=== PATIENT | female | born 1965 | race Caucasian/White ===

== ENCOUNTER 2017-01-03 15:56 | Emergency (ER) | payer OTHER ==
[~2017-01-03] VITALS: Ht 162.6 cm; Wt 65.9 kg
[~2017-01-03 15:56] MED LIST: AMOXICILLIN 50500 MG PO; AMOXICILLIN/CLA1 TA1 PO; BENADRYL PO; BENADRYL25 M2 PO; CEPHALEXIN500 M1 PO; CETIRIZINE; CIPRO 250MG TA250 MG PO; CLARITIN 1010 MG/TAB PO; EPI EZ PEN1 MG/ML IM; EPI-PEN1 MG/ML MR; EPIPEN 2-PAK1 MG/ML IM; HYDROXYZINE HCL25 MG PO; MEDROL 4MG DOSPA4 MG PO; NO HOME MEDICATIONS; OMNICEF 300MG300 MG PO; ONE DAILY1 TA1 PO; PEPCID 20MG TAB20 MG PO; PREDNISONE10 MG PO; PREDNISONE20 M1 PO; PREDNISONE20 MG PO; PROVENTIL0.09 MG/A1 IH; VICODIN 5/5001 UDTAB PO; ZITHROMAX 250M250 MG PO; ZYRTEC10 MG PO
[2017-01-03 15:58] VITALS: BP 140/81; TEMP 98.4
[2017-01-03] MEDS ORDERED: ZOFRAN 4MG T4 MG/TAB PO (16:16)
[2017-01-03] MEDS ORDERED: PREDNISONE20 MG PO (16:16)
[2017-01-03 17:11] VITALS: PULSE 76
== END 2017-01-03 17:12 | disposition home or self-care (01) ==
LOC: COL.ER 15:56
DX: T78.1XXA Other adverse food reactions, not elsewhere classified, initial encounter (principal); R22.0 Localized swelling, mass and lump, head; R11.2 Nausea with vomiting, unspecified
CPT/HCPCS: J7512

== ENCOUNTER 2017-01-10 21:06 | Emergency (ER) | payer OTHER ==
[~2017-01-10] VITALS: Ht 162.6 cm; Wt 68.2 kg
[~2017-01-10 21:06] MED LIST changes: +ZOFRAN 4MG T4 MG/TAB PO
[2017-01-10 21:08] VITALS: BP 133/81; TEMP 98.6
[2017-01-10] MEDS ORDERED: BENADRYL25 M2 PO (21:13)
[2017-01-10] MEDS ORDERED: CLARITIN 1010 MG/TAB PO (21:13)
[2017-01-10] MEDS ORDERED: PREDNISONE10 MG PO (21:39)
[2017-01-10 21:55] VITALS: PULSE 78
== END 2017-01-10 21:56 | disposition home or self-care (01) ==
LOC: COL.ER 21:06
DX: T78.1XXA Other adverse food reactions, not elsewhere classified, initial encounter (principal); L50.0 Allergic urticaria
CPT/HCPCS: J1200; J7512

== ENCOUNTER 2017-03-03 15:58 | Emergency (ER) | payer OTHER ==
[~2017-03-03] VITALS: Ht 162.6 cm; Wt 65.9 kg
[2017-03-03 16:02] VITALS: TEMP 98.8
[2017-03-03] MEDS ORDERED: ZYRTEC 10MG10 MG PO (16:07)
[2017-03-03] MEDS ORDERED: PEPCID 20MG TAB20 MG PO (16:56)
[2017-03-03] MEDS ORDERED: PREDNISONE20 MG PO (16:56)
[2017-03-03] MEDS ORDERED: BENADRYL25 M2 PO (16:56)
[2017-03-03 17:05] VITALS: BP 129/86; PULSE 90
== END 2017-03-03 17:09 | disposition home or self-care (01) ==
LOC: COL.ER 15:58
DX: T78.1XXA Other adverse food reactions, not elsewhere classified, initial encounter (principal); L50.0 Allergic urticaria; F17.210 Nicotine dependence, cigarettes, uncomplicated
CPT/HCPCS: J1200; J2930; J7050

== ENCOUNTER 2017-04-13 14:24 | Emergency (ER) | payer OTHER ==
[~2017-04-13] VITALS: Ht 162.6 cm; Wt 65.9 kg
[~2017-04-13 14:24] MED LIST changes: +ZYRTEC 10MG10 MG PO
[2017-04-13 14:28] VITALS: TEMP 99.5
[2017-04-13] MEDS ORDERED: CLARITIN 1010 MG/TAB PO (15:09)
[2017-04-13] MEDS ORDERED: MEDROL 4MG DOSPA4 MG PO (15:50)
[2017-04-13] MEDS ORDERED: PREDNISONE10 MG PO (15:55)
[2017-04-13 16:16] VITALS: BP 119/80; PULSE 79
== END 2017-04-13 16:16 | disposition home or self-care (01) ==
LOC: COL.ER 14:24
DX: T78.1XXA Other adverse food reactions, not elsewhere classified, initial encounter (principal); F17.210 Nicotine dependence, cigarettes, uncomplicated; Z91.011 Allergy to milk products; Z90.89 Acquired absence of other organs; Z98.890 Other specified postprocedural states
CPT/HCPCS: J7512

== ENCOUNTER 2017-04-28 09:07 | Emergency (ER) | payer OTHER ==
[~2017-04-28] VITALS: Ht 162.6 cm; Wt 65.9 kg
[2017-04-28 09:11] VITALS: BP 152/85; PULSE 88; TEMP 98.3
[2017-04-28] MEDS ORDERED: PREDNISONE20 MG PO (10:05)
== END 2017-04-28 10:28 | disposition home or self-care (01) ==
LOC: COL.ER 09:07
DX: T78.1XXA Other adverse food reactions, not elsewhere classified, initial encounter (principal); L50.0 Allergic urticaria
CPT/HCPCS: J7512

== ENCOUNTER 2017-05-31 20:18 | Emergency (ER) | payer OTHER ==
[~2017-05-31] VITALS: Ht 162.6 cm; Wt 65.9 kg
[2017-05-31 20:20] VITALS: TEMP 98.6
[2017-05-31] MEDS ORDERED: PREDNISONE20 MG PO (20:43)
[2017-05-31] MEDS ORDERED: ADRENACLICK IM (20:43)
[2017-05-31] MEDS ORDERED: ZYRTEC 10MG10 MG PO (21:20)
[2017-05-31 21:35] VITALS: BP 117/73; PULSE 105
== END 2017-05-31 21:42 | disposition home or self-care (01) ==
LOC: COL.ER 20:18
DX: R11.10 Vomiting, unspecified (principal); R19.7 Diarrhea, unspecified; L29.9 Pruritus, unspecified; R06.02 Shortness of breath; R22.0 Localized swelling, mass and lump, head; R13.10 Dysphagia, unspecified
CPT/HCPCS: J0171; J7512

== ENCOUNTER 2017-06-09 19:53 | Emergency (ER) | payer OTHER ==
[~2017-06-09] VITALS: Ht 162.6 cm; Wt 65.9 kg
[~2017-06-09 19:53] MED LIST changes: +ADRENACLICK IM
[2017-06-09 19:56] VITALS: BP 151/96; TEMP 99.8
[2017-06-09] MEDS ORDERED: PREDNISONE20 MG PO (20:58)
[2017-06-09 21:49] VITALS: PULSE 89
== END 2017-06-09 21:51 | disposition home or self-care (01) ==
LOC: COL.ER 19:53
DX: L50.0 Allergic urticaria (principal); R13.10 Dysphagia, unspecified; T78.40XA Allergy, unspecified, initial encounter
CPT/HCPCS: J1200; J2930; J7040; J7512

== ENCOUNTER 2017-07-06 13:41 | Emergency (ER) | payer OTHER ==
[~2017-07-06] VITALS: Ht 162.6 cm; Wt 73.6 kg
[2017-07-06 13:45] VITALS: BP 136/75; TEMP 97.8
[2017-07-06] MEDS ORDERED: PREDNISONE20 MG PO (16:02)
[2017-07-06 16:13] VITALS: PULSE 100
== END 2017-07-06 16:15 | disposition home or self-care (01) ==
LOC: COL.ER 13:41
DX: T78.40XA Allergy, unspecified, initial encounter (principal); F17.210 Nicotine dependence, cigarettes, uncomplicated; Z98.51 Tubal ligation status
CPT/HCPCS: J2930

== ENCOUNTER 2017-11-29 19:52 | Emergency (ER) | payer SELFPAY ==
[~2017-11-29] VITALS: Ht 162.6 cm; Wt 65.9 kg
[2017-11-29 20:01] VITALS: TEMP 99.2
[2017-11-29] MEDS ORDERED: PREDNISONE20 MG PO (20:27)
[2017-11-29 21:57] VITALS: BP 119/83; PULSE 91
== END 2017-11-29 21:58 | disposition home or self-care (01) ==
LOC: COL.ER 19:52
DX: T78.40XA Allergy, unspecified, initial encounter (principal); Z87.892 Personal history of anaphylaxis
CPT/HCPCS: J7512

== ENCOUNTER 2017-12-19 19:11 | Emergency (ER) | payer OTHER ==
[~2017-12-19] VITALS: Ht 162.6 cm; Wt 65.9 kg
[2017-12-19 19:21] VITALS: BP 140/90; TEMP 99.3
[2017-12-19] MEDS ORDERED: PREDNISONE20 MG PO (19:55)
[2017-12-19 21:29] VITALS: PULSE 92
== END 2017-12-19 21:29 | disposition home or self-care (01) ==
LOC: COL.ER 19:11
DX: R21 Rash and other nonspecific skin eruption (principal); T78.40XA Allergy, unspecified, initial encounter; Z79.52 Long term (current) use of systemic steroids
CPT/HCPCS: J1200; J2930

== ENCOUNTER 2017-12-27 10:14 | Emergency (ER) | payer SELFPAY ==
[~2017-12-27] VITALS: Ht 162.6 cm; Wt 68.2 kg
[2017-12-27 10:18] VITALS: BP 138/65; TEMP 98.3
[2017-12-27] MEDS ORDERED: PREDNISONE20 MG PO (11:22)
[2017-12-27 11:27] VITALS: PULSE 77
== END 2017-12-27 11:31 | disposition home or self-care (01) ==
LOC: COL.ER 10:14
DX: T78.40XA Allergy, unspecified, initial encounter (principal)
CPT/HCPCS: J2930

== ENCOUNTER → 2017-12-27 | Outpatient (CLI) | payer OTHER | LOC: COL.PUL 09:28 | DX: Z02.71 Encounter for disability determination (principal); F17.200 Nicotine dependence, unspecified, uncomplicated ==

== ENCOUNTER 2018-05-09 18:53 | Emergency (ER) | payer SELFPAY ==
[~2018-05-09] VITALS: Ht 162.6 cm; Wt 72.5 kg
[2018-05-09 18:56] VITALS: TEMP 98.3
[2018-05-09] MEDS ORDERED: PREDNISONE20 MG PO (20:11)
[2018-05-09 21:10] VITALS: BP 119/72; PULSE 93
== END 2018-05-09 21:10 | disposition home or self-care (01) ==
LOC: COL.ER 18:53
DX: T78.1XXA Other adverse food reactions, not elsewhere classified, initial encounter (principal); F17.210 Nicotine dependence, cigarettes, uncomplicated
CPT/HCPCS: J1200; J2930

== ENCOUNTER 2018-05-15 19:25 | Emergency (ER) | payer SELFPAY ==
[~2018-05-15] VITALS: Ht 162.6 cm; Wt 68.2 kg
[2018-05-15 19:27] VITALS: TEMP 98.9
[2018-05-15] MEDS ORDERED: BENADRYL25 M2 PO (19:44)
[2018-05-15] MEDS ORDERED: ZITHROMAX 250M250 MG PO (21:42)
[2018-05-15] MEDS ORDERED: PREDNISONE20 MG PO (21:42)
[2018-05-15 21:50] VITALS: BP 158/91; PULSE 116
== END 2018-05-15 21:50 | disposition home or self-care (01) ==
LOC: COL.ER 19:25
DX: J04.0 Acute laryngitis (principal); J40 Bronchitis, not specified as acute or chronic; T78.40XA Allergy, unspecified, initial encounter
CPT/HCPCS: J1200; J2930; J7030

== ENCOUNTER 2018-05-31 16:35 | Emergency (ER) | payer SELFPAY ==
[~2018-05-31] VITALS: Ht 162.6 cm; Wt 68.2 kg
[2018-05-31 18:15] VITALS: BP 133/79; PULSE 89
[2018-05-31] MEDS ORDERED: MEDROL 4MG DOSPA4 MG PO (18:27)
[2018-05-31] MEDS ORDERED: PEPCID 20MG TAB20 MG PO (18:27)
== END 2018-05-31 18:34 | disposition home or self-care (01) ==
LOC: COL.ER 16:35
DX: J04.0 Acute laryngitis (principal); T78.1XXA Other adverse food reactions, not elsewhere classified, initial encounter; Z87.891 Personal history of nicotine dependence
CPT/HCPCS: J7512

== ENCOUNTER 2018-07-04 19:51 | Emergency (ER) | payer SELFPAY ==
[~2018-07-04] VITALS: Ht 162.6 cm; Wt 70.5 kg
[2018-07-04 19:55] VITALS: TEMP 98
[2018-07-04] MEDS ORDERED: PREDNISONE20 MG PO ×2 (20:13→21:31)
[2018-07-04 21:41] VITALS: BP 121/78; PULSE 99
== END 2018-07-04 21:41 | disposition home or self-care (01) ==
LOC: COL.ER 19:51
DX: R21 Rash and other nonspecific skin eruption (principal); T78.1XXA Other adverse food reactions, not elsewhere classified, initial encounter
CPT/HCPCS: J2930

== ENCOUNTER 2018-07-30 10:09 | Emergency (ER) | payer SELFPAY ==
[~2018-07-30] VITALS: Ht 162.6 cm; Wt 70.5 kg
[2018-07-30 10:17] VITALS: BP 136/71; TEMP 98.4
[2018-07-30] MEDS ORDERED: PROAIR HFA0.09 MG/AC IH (11:41)
[2018-07-30] MEDS ORDERED: PEPCID 20MG TAB20 MG PO (11:41)
[2018-07-30] MEDS ORDERED: PREDNISONE20 MG PO (11:41)
[2018-07-30 11:57] VITALS: PULSE 103
== END 2018-07-30 11:59 | disposition home or self-care (01) ==
LOC: COL.ER 10:09
DX: T78.1XXA Other adverse food reactions, not elsewhere classified, initial encounter (principal); M79.89 Other specified soft tissue disorders; Z98.51 Tubal ligation status; Z98.890 Other specified postprocedural states; F17.210 Nicotine dependence, cigarettes, uncomplicated
CPT/HCPCS: J7512

== ENCOUNTER 2018-08-15 21:03 | Emergency (ER) | payer SELFPAY ==
[~2018-08-15] VITALS: Ht 162.6 cm; Wt 70.5 kg
[~2018-08-15 21:03] MED LIST changes: +PROAIR HFA0.09 MG/AC IH
[2018-08-15 21:15] VITALS: BP 143/80; TEMP 98.1
[2018-08-15] MEDS ORDERED: PREDNISONE20 MG PO (22:50)
[2018-08-15 23:05] VITALS: PULSE 88
== END 2018-08-15 23:05 | disposition home or self-care (01) ==
LOC: COL.ER 21:03
DX: L50.0 Allergic urticaria (principal); Z87.891 Personal history of nicotine dependence
CPT/HCPCS: J2930

== ENCOUNTER 2018-09-03 13:57 | Emergency (ER) | payer SELFPAY ==
[~2018-09-03] VITALS: Ht 162.6 cm; Wt 70.5 kg
[2018-09-03 14:17] VITALS: BP 139/100; TEMP 98.5
[2018-09-03] MEDS ORDERED: PREDNISONE20 MG PO (15:22)
[2018-09-03 15:40] VITALS: PULSE 96
== END 2018-09-03 15:40 | disposition home or self-care (01) ==
LOC: COL.ER 13:57
DX: T78.1XXA Other adverse food reactions, not elsewhere classified, initial encounter (principal); F17.210 Nicotine dependence, cigarettes, uncomplicated
CPT/HCPCS: J7512

== ENCOUNTER 2018-10-29 19:38 | Emergency (ER) | payer SELFPAY ==
[~2018-10-29] VITALS: Ht 162.6 cm; Wt 70.5 kg
[2018-10-29 19:42] VITALS: BP 132/66; TEMP 98.2
[2018-10-29] MEDS ORDERED: PREDNISONE20 MG PO (21:01)
[2018-10-29 21:25] VITALS: PULSE 79
== END 2018-10-29 21:25 | disposition home or self-care (01) ==
LOC: COL.ER 19:38
DX: T78.40XA Allergy, unspecified, initial encounter (principal); J02.9 Acute pharyngitis, unspecified
CPT/HCPCS: J2930

== ENCOUNTER 2018-11-12 09:07 | Emergency (ER) | payer SELFPAY ==
[~2018-11-12] VITALS: Ht 162.6 cm; Wt 68.6 kg
[2018-11-12 09:12] VITALS: TEMP 99.1
[2018-11-12] MEDS ORDERED: AMOXICILLIN 50500 MG PO (09:40)
[2018-11-12 10:15] VITALS: BP 126/73; PULSE 85
== END 2018-11-12 10:16 | disposition home or self-care (01) ==
LOC: COL.ER 09:07
DX: J02.0 Streptococcal pharyngitis (principal)
CPT/HCPCS: J8540

== ENCOUNTER 2018-11-21 18:49 | Emergency (ER) | payer SELFPAY ==
[~2018-11-21] VITALS: Ht 162.6 cm; Wt 70.5 kg
[2018-11-21 18:52] VITALS: TEMP 98.5
[2018-11-21] MEDS ORDERED: PREDNISONE20 MG PO ×2 (19:08→20:02)
[2018-11-21 20:08] VITALS: BP 113/76; PULSE 82
== END 2018-11-21 20:08 | disposition home or self-care (01) ==
LOC: COL.ER 18:49
DX: T78.1XXA Other adverse food reactions, not elsewhere classified, initial encounter (principal)
CPT/HCPCS: J7512

== ENCOUNTER 2018-12-04 20:01 | Emergency (ER) | payer SELFPAY ==
[~2018-12-04] VITALS: Ht 162.6 cm; Wt 70.5 kg
[2018-12-04 20:04] VITALS: BP 171/72; TEMP 99.1
[2018-12-04] MEDS ORDERED: PREDNISONE20 MG PO (20:52)
[2018-12-04 20:55] VITALS: PULSE 94
== END 2018-12-04 20:55 | disposition home or self-care (01) ==
LOC: COL.ER 20:01
DX: T78.1XXA Other adverse food reactions, not elsewhere classified, initial encounter (principal)
CPT/HCPCS: J1100

== ENCOUNTER 2018-12-28 19:28 | Emergency (ER) | payer SELFPAY ==
[~2018-12-28] VITALS: Ht 162.6 cm; Wt 70.5 kg
[2018-12-28 19:30] VITALS: BP 139/89; TEMP 97.8
[2018-12-28 20:00] VITALS: PULSE 89
== END 2018-12-28 20:02 | disposition home or self-care (01) ==
LOC: COL.ER 19:28
DX: T78.1XXA Other adverse food reactions, not elsewhere classified, initial encounter (principal); R21 Rash and other nonspecific skin eruption; Z87.891 Personal history of nicotine dependence
CPT/HCPCS: J8540

== ENCOUNTER 2018-12-30 16:44 | Emergency (ER) | payer SELFPAY ==
[~2018-12-30] VITALS: Ht 162.6 cm; Wt 74.1 kg
[2018-12-30 16:48] VITALS: TEMP 97.9
[2018-12-30] MEDS ORDERED: PREDNISONE20 MG PO (17:00)
[2018-12-30 17:37] VITALS: BP 125/81; PULSE 87
== END 2018-12-30 17:35 | disposition home or self-care (01) ==
LOC: COL.ER 16:44
DX: T78.1XXA Other adverse food reactions, not elsewhere classified, initial encounter (principal)
CPT/HCPCS: J7512

== ENCOUNTER 2019-01-15 19:38 | Emergency (ER) | payer SELFPAY ==
[~2019-01-15] VITALS: Ht 162.6 cm; Wt 70.5 kg
[2019-01-15 19:44] VITALS: TEMP 98.6
[2019-01-15] MEDS ORDERED: PREDNISONE10 MG PO (20:23)
[2019-01-15 20:46] VITALS: BP 125/64; PULSE 82
== END 2019-01-15 20:46 | disposition home or self-care (01) ==
LOC: COL.ER 19:38
DX: L50.9 Urticaria, unspecified (principal)
CPT/HCPCS: J1100

== ENCOUNTER 2019-02-16 19:13 | Emergency (ER) | payer SELFPAY ==
[~2019-02-16] VITALS: Ht 162.6 cm; Wt 72.7 kg
[2019-02-16 19:17] VITALS: TEMP 98.5
[2019-02-16] MEDS ORDERED: DECADRON6 MG PO (22:04)
[2019-02-16 22:09] VITALS: BP 128/75; PULSE 63
== END 2019-02-16 22:27 | disposition home or self-care (01) ==
LOC: COL.ER 19:13
DX: T78.1XXA Other adverse food reactions, not elsewhere classified, initial encounter (principal); R11.10 Vomiting, unspecified; Z87.891 Personal history of nicotine dependence; Z91.010 Allergy to peanuts; Z91.018 Allergy to other foods; Z91.040 Latex allergy status; Z79.51 Long term (current) use of inhaled steroids; Z91.011 Allergy to milk products
CPT/HCPCS: J8540

== ENCOUNTER 2019-05-05 12:00 | Emergency (ER) | payer SELFPAY ==
[~2019-05-05] VITALS: Ht 162.6 cm; Wt 68.2 kg
[~2019-05-05 12:00] MED LIST changes: +DECADRON6 MG PO
[2019-05-05 12:04] VITALS: BP 140/87; TEMP 98.2
[2019-05-05] MEDS ORDERED: DECADRON 4MG TAB4 MG PO (12:29)
[2019-05-05 13:09] VITALS: PULSE 91
== END 2019-05-05 13:13 | disposition home or self-care (01) ==
LOC: COL.ER 12:00
DX: T78.40XA Allergy, unspecified, initial encounter (principal)
CPT/HCPCS: J0171; J8540

== ENCOUNTER 2019-07-15 11:40 | Emergency (ER) | payer SELFPAY ==
[~2019-07-15] VITALS: Ht 162.6 cm; Wt 65.9 kg
[~2019-07-15 11:40] MED LIST changes: +DECADRON 4MG TAB4 MG PO
[2019-07-15 11:47] VITALS: TEMP 98.4
[2019-07-15 12:57] VITALS: BP 113/63
[2019-07-15] MEDS ORDERED: DECADRON 4MG TAB4 MG PO (13:05)
[2019-07-15 13:14] VITALS: PULSE 93
== END 2019-07-15 13:16 | disposition home or self-care (01) ==
LOC: COL.ER 11:40
DX: T78.1XXA Other adverse food reactions, not elsewhere classified, initial encounter (principal)
CPT/HCPCS: J0171; J1100; J1200

== ENCOUNTER 2019-09-20 19:14 | Emergency (ER) | payer SELFPAY ==
[~2019-09-20] VITALS: Ht 162.6 cm; Wt 72.7 kg
[2019-09-20 19:18] VITALS: BP 153/97; TEMP 98.9
[2019-09-20 20:24] LABS: STREP SCREEN NEGATIVE
[2019-09-20 21:26] VITALS: PULSE 95
== END 2019-09-20 21:26 | disposition home or self-care (01) ==
LOC: COL.ER 19:14
PROVIDERS: Emergency Medicine
DX: T78.1XXA Other adverse food reactions, not elsewhere classified, initial encounter (principal); J03.90 Acute tonsillitis, unspecified
CPT/HCPCS: J0171; J1200; J8540

== ENCOUNTER 2019-09-23 13:39 | Emergency (ER) | payer SELFPAY ==
[~2019-09-23] VITALS: Ht 162.6 cm; Wt 72.7 kg
[2019-09-23 13:44] VITALS: BP 132/66; TEMP 98.4
[2019-09-23 14:11] LABS: COLLECTION METHOD CLEAN CATCH
[2019-09-23 14:24] LABS: BASO # 0.1 (0.0-0.2); BASO % 0.5 % (0.0-2.0); EOS # 0.3 (0.0-0.7); EOS % 2.4 % (0-4.0); GRAN % 48.7 % (42.2-75.2); HEMATOCRIT 40.3 % (37.0-47.0); HEMOGLOBIN 13.4 g/dl (12.5-16.0); LYMPH # 4.9 (1.2-3.4); LYMPH % 39.4 % (20.0-51.0); MEAN CELL VOLUME 92 fl (80.0-100.0); MEAN CORPUSCULAR HEMOGLOBIN 31 pg (27.0-31.0); MEAN CORPUSCULAR HGB CONC 33 g/dl (33.0-37.0); MEAN PLATELET VOLUME 10.1 fl (7.4-10.4); MONO # 1.1 (0.1-0.6); MONO % 8.8 % (1.7-9.3); PLATELET COUNT 351 K/mm3 (130-400); RED BLOOD COUNT 4.37 M/mm3 (4.10-5.30); REDCELL DISTRIBUTION WIDTH-CV 13.9 % (11.5-14.5)
[2019-09-23 14:29] LABS: MUCOUS Present /lpf; PH 5 (5-8); SQUAMOUS EPITHELIAL 0-2 /hpf; URINE APPEARANCE Hazy; URINE BACTERIA Rare /hpf; URINE BILIRUBIN Negative (NEGATIVE); URINE BLOOD Negative (NEGATIVE); URINE COLOR Yellow; URINE GLUCOSE Negative (NEGATIVE); URINE KETONE Negative (NEGATIVE); URINE LEUKOCYTE ESTERASE Negative (NEGATIVE); URINE NITRATE Negative (NEGATIVE); URINE PROTEIN(semi-quant) Negative (NEGATIVE); URINE RBC 0-2 /hpf; URINE UROBILINOGEN Negative (NEGATIVE)
[2019-09-23 14:35] LABS: BILIRUBIN,TOTAL 0.7 mg/dL (0.0-1.0); CALCIUM 8.8 mg/dL (8.4-10.2); CREATININE, serum 0.87 (0.52-1.25); POTASSIUM 3.8 mmol/L (3.4-5.0); TOTAL PROTEIN 6.6 gm/dL (6.4-8.2)
[2019-09-23 15:31] VITALS: PULSE 88
== END 2019-09-23 15:31 | disposition home or self-care (01) ==
LOC: COL.ER 13:39
PROVIDERS: Emergency Medicine
DX: R10.9 Unspecified abdominal pain (principal)
CPT/HCPCS: J7030

== ENCOUNTER 2019-12-13 19:22 | Emergency (ER) | payer SELFPAY ==
[~2019-12-13] VITALS: Ht 162.6 cm; Wt 68.2 kg
[2019-12-13 19:27] VITALS: BP 130/82
[2019-12-13] MEDS ORDERED: PREDNISONE20 MG PO (19:48)
[2019-12-13 20:40] VITALS: PULSE 79; TEMP 98.2
== END 2019-12-13 20:48 | disposition home or self-care (01) ==
LOC: COL.ER 19:22
DX: T78.1XXA Other adverse food reactions, not elsewhere classified, initial encounter (principal)
CPT/HCPCS: J7512

== ENCOUNTER 2020-02-23 11:35 | Emergency (ER) | payer SELFPAY ==
[~2020-02-23] VITALS: Ht 162.6 cm; Wt 70.5 kg
[2020-02-23 11:39] VITALS: BP 134/82; TEMP 98.5
[2020-02-23] MEDS ORDERED: ZYRTEC 10MG10 MG PO (11:48)
[2020-02-23] MEDS ORDERED: BENADRYL50 MG PO (11:49)
[2020-02-23] MEDS ORDERED: PREDNISONE20 MG PO (12:52)
[2020-02-23 13:03] VITALS: PULSE 91
== END 2020-02-23 13:02 | disposition home or self-care (01) ==
LOC: COL.ER 11:35
DX: T78.40XA Allergy, unspecified, initial encounter (principal); Z87.891 Personal history of nicotine dependence
CPT/HCPCS: J1100

== ENCOUNTER 2020-03-03 13:00 | Emergency (ER) | payer SELFPAY ==
[~2020-03-03] VITALS: Ht 162.6 cm; Wt 72.7 kg
[~2020-03-03 13:00] MED LIST changes: +BENADRYL50 MG PO
[2020-03-03 13:15] VITALS: BP 137/82; TEMP 99
[2020-03-03] MEDS ORDERED: CIPRODEX OT (13:52)
[2020-03-03 14:28] VITALS: PULSE 78
== END 2020-03-03 14:28 | disposition home or self-care (01) ==
LOC: COL.ER 13:00
DX: T65.811A Toxic effect of latex, accidental (unintentional), initial encounter (principal); H60.92 Unspecified otitis externa, left ear; Z87.891 Personal history of nicotine dependence
CPT/HCPCS: J2930

== ENCOUNTER 2020-03-08 10:59 | Emergency (ER) | payer SELFPAY ==
[~2020-03-08] VITALS: Ht 162.6 cm; Wt 72.7 kg
[~2020-03-08 10:59] MED LIST changes: +CIPRODEX OT
[2020-03-08 11:06] VITALS: BP 134/92; PULSE 110; TEMP 98.6
[2020-03-08] MEDS ORDERED: PREDNISONE20 MG PO (11:36)
== END 2020-03-08 11:47 | disposition home or self-care (01) ==
LOC: COL.ER 10:59
DX: T65.811A Toxic effect of latex, accidental (unintentional), initial encounter (principal); Z87.891 Personal history of nicotine dependence

== ENCOUNTER 2020-03-14 21:39 | Emergency (ER) | payer SELFPAY ==
[~2020-03-14] VITALS: Ht 162.6 cm; Wt 68.2 kg
[2020-03-14 21:43] VITALS: TEMP 97.6
[2020-03-15] MEDS ORDERED: PEPCID 20MG TAB20 MG PO (00:32)
[2020-03-15] MEDS ORDERED: PRILOTC PO (00:32)
[2020-03-15] MEDS ORDERED: ATARAX 25MG25 MG/TAB PO (00:32)
[2020-03-15 00:52] VITALS: BP 180/86; PULSE 94
== END 2020-03-15 00:59 | disposition home or self-care (01) ==
LOC: COL.ER 21:39
DX: K90.49 Malabsorption due to intolerance, not elsewhere classified (principal); H72.92 Unspecified perforation of tympanic membrane, left ear; F17.210 Nicotine dependence, cigarettes, uncomplicated

== ENCOUNTER 2020-03-21 12:49 | Emergency (ER) | payer SELFPAY ==
[~2020-03-21] VITALS: Ht 162.6 cm; Wt 70.5 kg
[~2020-03-21 12:49] MED LIST changes: +ATARAX 25MG25 MG/TAB PO; +PRILOTC PO
[2020-03-21 12:57] VITALS: BP 130/93; TEMP 98.1
[2020-03-21 13:50] VITALS: PULSE 100
== END 2020-03-21 13:50 | disposition home or self-care (01) ==
LOC: COL.ER 12:49
DX: R21 Rash and other nonspecific skin eruption (principal); F17.210 Nicotine dependence, cigarettes, uncomplicated
CPT/HCPCS: J1100

== ENCOUNTER 2020-04-02 21:51 | Emergency (ER) | payer SELFPAY ==
[~2020-04-02] VITALS: Ht 162.6 cm; Wt 70.5 kg
[2020-04-02 21:58] VITALS: BP 146/77; TEMP 98.3
[2020-04-02 23:06] LABS: STREP SCREEN NEGATIVE
[2020-04-03 00:33] VITALS: PULSE 82
== END 2020-04-03 00:33 | disposition home or self-care (01) ==
LOC: COL.ER 21:51
PROVIDERS: Emergency Medicine
DX: H72.92 Unspecified perforation of tympanic membrane, left ear (principal); R09.81 Nasal congestion; J02.9 Acute pharyngitis, unspecified
CPT/HCPCS: J1885; J2550

== ENCOUNTER 2020-08-19 14:16 | Emergency (ER) | payer SELFPAY ==
[~2020-08-19] VITALS: Ht 162.6 cm; Wt 68.2 kg
[2020-08-19 14:23] VITALS: TEMP 98.2
[2020-08-19] MEDS ORDERED: PREDNISONE20 MG PO (15:50)
[2020-08-19 15:59] VITALS: BP 125/75; PULSE 81
== END 2020-08-19 15:59 | disposition home or self-care (01) ==
LOC: COL.ER 14:16
DX: T78.40XA Allergy, unspecified, initial encounter (principal)
CPT/HCPCS: J2930; J7030

== ENCOUNTER 2020-10-09 16:29 | Emergency (ER) | payer SELFPAY ==
[~2020-10-09] VITALS: Ht 162.6 cm; Wt 70.5 kg
[2020-10-09 16:33] VITALS: BP 126/70; TEMP 97.8
[2020-10-09] MEDS ORDERED: PREDNISONE20 MG PO (17:28)
[2020-10-09 18:00] VITALS: PULSE 81
== END 2020-10-09 18:00 | disposition home or self-care (01) ==
LOC: COL.ER 16:29
DX: T78.1XXA Other adverse food reactions, not elsewhere classified, initial encounter (principal); F17.210 Nicotine dependence, cigarettes, uncomplicated; Z79.52 Long term (current) use of systemic steroids

== ENCOUNTER 2020-11-03 19:35 | Emergency (ER) | payer SELFPAY ==
[~2020-11-03] VITALS: Ht 162.6 cm; Wt 68.2 kg
[2020-11-03 19:39] VITALS: TEMP 98.4
[2020-11-04] MEDS ORDERED: PREDNISONE20 MG PO (00:52)
[2020-11-04 01:00] VITALS: BP 95/82; PULSE 90
[2020-11-05] MEDS ORDERED: PREDNISONE10 MG PO ×2 (13:51→13:52)
[2020-11-05] MEDS ORDERED: EPIPEN 2-PAK1 MG/ML IM (13:52)
== END 2020-11-04 01:00 | disposition home or self-care (01) ==
LOC: COL.ER 19:35
DX: T78.40XA Allergy, unspecified, initial encounter (principal); Z79.52 Long term (current) use of systemic steroids
CPT/HCPCS: J0171; J1200; J2930

== ENCOUNTER 2020-11-05 13:27 | Emergency (ER) | payer SELFPAY ==
[~2020-11-05] VITALS: Ht 162.6 cm; Wt 68.2 kg
[2020-11-05 13:31] VITALS: TEMP 98.5
[2020-11-05] MEDS ORDERED: PREDNISONE10 MG PO ×2 (13:51→13:52)
[2020-11-05] MEDS ORDERED: EPIPEN 2-PAK1 MG/ML IM (13:52)
[2020-11-05 14:04] VITALS: BP 145/96; PULSE 94
== END 2020-11-05 14:01 | disposition home or self-care (01) ==
LOC: COL.ER 13:27
DX: T78.1XXA Other adverse food reactions, not elsewhere classified, initial encounter (principal); Z79.52 Long term (current) use of systemic steroids
CPT/HCPCS: J7512

== ENCOUNTER 2021-01-17 16:14 | Emergency (ER) | payer SELFPAY ==
[~2021-01-17] VITALS: Ht 162.6 cm; Wt 68.2 kg
[2021-01-17 16:17] VITALS: TEMP 97.9
[2021-01-17] MEDS ORDERED: PREDNISONE20 MG PO (18:00)
[2021-01-17 18:10] VITALS: BP 144/89; PULSE 97
[2021-04-06] MEDS ORDERED: PREDNISONE20 MG PO (08:07)
[2021-04-06] MEDS ORDERED: PROAIR HFA0.09 MG/AC IH (08:07)
== END 2021-01-17 18:10 | disposition home or self-care (01) ==
LOC: COL.ER 16:14
DX: T78.40XA Allergy, unspecified, initial encounter (principal); Z87.891 Personal history of nicotine dependence
CPT/HCPCS: J7512

== ENCOUNTER 2021-02-16 22:04 | Emergency (ER) | payer SELFPAY ==
[~2021-02-16] VITALS: Ht 162.6 cm; Wt 70.5 kg
[2021-02-16 22:27] VITALS: TEMP 97.4
[2021-02-17] MEDS ORDERED: PEPCID40 MG PO (01:03)
[2021-02-17] MEDS ORDERED: MEDROL 4MG DOSPA4 MG PO (01:03)
[2021-02-17] MEDS ORDERED: ATARAX 25MG25 MG/TAB PO (01:03)
[2021-02-17] MEDS ORDERED: EPIPEN 2-PAK1 MG/ML IM (01:03)
[2021-02-17 01:06] VITALS: BP 125/86; PULSE 66
[2021-04-06] MEDS ORDERED: PROAIR HFA0.09 MG/AC IH (08:07)
[2021-04-06] MEDS ORDERED: PREDNISONE20 MG PO (08:07)
== END 2021-02-17 01:30 | disposition home or self-care (01) ==
LOC: COL.ER 22:04
DX: T78.40XA Allergy, unspecified, initial encounter (principal); Z91.010 Allergy to peanuts; Z91.040 Latex allergy status; Z79.52 Long term (current) use of systemic steroids
CPT/HCPCS: J1200; J2930; J7030

== ENCOUNTER 2021-02-22 20:15 | Emergency (ER) | payer SELFPAY ==
[~2021-02-22] VITALS: Ht 162.6 cm; Wt 68.2 kg
[~2021-02-22 20:15] MED LIST changes: +PEPCID40 MG PO
[2021-02-22] MEDS ORDERED: PREDNISONE20 MG PO (22:15)
[2021-02-22 22:27] VITALS: BP 124/82; PULSE 72; TEMP 97.8
[2021-04-06] MEDS ORDERED: PREDNISONE20 MG PO (08:07)
[2021-04-06] MEDS ORDERED: PROAIR HFA0.09 MG/AC IH (08:07)
== END 2021-02-22 22:27 | disposition home or self-care (01) ==
LOC: COL.ER 20:15
DX: T78.40XA Allergy, unspecified, initial encounter (principal); Z91.040 Latex allergy status; Z87.891 Personal history of nicotine dependence; Z79.52 Long term (current) use of systemic steroids
CPT/HCPCS: J7512

== ENCOUNTER 2021-03-03 19:27 | Emergency (ER) | payer SELFPAY ==
[~2021-03-03] VITALS: Ht 162.6 cm; Wt 86.4 kg
[2021-03-03 20:26] LABS: HEMATOCRIT 42.7 % (37.0-47.0); HEMOGLOBIN 13.8 g/dl (12.5-16.0); MEAN CELL VOLUME 95 fl (80.0-100.0); MEAN CORPUSCULAR HEMOGLOBIN 31 pg (27.0-31.0); MEAN CORPUSCULAR HGB CONC 32 g/dl (33.0-37.0); MEAN PLATELET VOLUME 9.4 fl (7.4-10.4); PLATELET COUNT 373 K/mm3 (130-400); REDCELL DISTRIBUTION WIDTH-CV 14.1 % (11.5-14.5)
[2021-03-03 20:41] LABS: CALCIUM 9.3 mg/dL (8.4-10.2); CREATININE, serum 0.81 (0.52-1.25)
[2021-03-03 20:43] LABS: POTASSIUM 2.8 mmol/L (3.4-5.0)
[2021-03-03 21:01] LABS: LYMPHOCYTE 34 % (20.0-51.0); NEUTROPHILS 57 % (42.0-75.2)
[2021-03-03 21:03] LABS: COLLECTION METHOD CLEAN CATCH
[2021-03-03 21:36] LABS: SQUAMOUS EPITHELIAL 0-2 /hpf; URINE BACTERIA None Seen /hpf; URINE RBC 0-2 /hpf
[2021-03-03 21:43] LABS: PH 8 (5-8); URINE APPEARANCE Clear; URINE BILIRUBIN Negative (NEGATIVE); URINE BLOOD Negative (NEGATIVE); URINE COLOR Colorless; URINE GLUCOSE Negative (NEGATIVE); URINE KETONE Negative (NEGATIVE); URINE LEUKOCYTE ESTERASE Negative (NEGATIVE); URINE NITRATE Negative (NEGATIVE); URINE PROTEIN(semi-quant) Negative (NEGATIVE); URINE UROBILINOGEN Negative (NEGATIVE)
[2021-03-03] MEDS ORDERED: PREDNISONE50 MG PO (22:03)
[2021-03-03] MEDS ORDERED: KLOR-CON20 MEQ PO (22:04)
[2021-03-03 23:52] VITALS: BP 135/78; PULSE 88; TEMP 97.8
[2021-04-06] MEDS ORDERED: PROAIR HFA0.09 MG/AC IH (08:07)
[2021-04-06] MEDS ORDERED: PREDNISONE20 MG PO (08:07)
== END 2021-03-03 23:52 | disposition home or self-care (01) ==
LOC: COL.ER 19:27
PROVIDERS: Emergency Medicine
DX: T78.40XA Allergy, unspecified, initial encounter (principal); Z91.040 Latex allergy status; Z79.52 Long term (current) use of systemic steroids
CPT/HCPCS: J0171; J1200; J3480; J7030; J7512

== ENCOUNTER 2021-03-08 18:32 | Emergency (ER) | payer SELFPAY ==
[~2021-03-08] VITALS: Ht 162.6 cm; Wt 70.5 kg
[~2021-03-08 18:32] MED LIST changes: +KLOR-CON20 MEQ PO; +PREDNISONE50 MG PO
[2021-03-08 18:36] VITALS: BP 129/88; TEMP 98
[2021-03-08] MEDS ORDERED: NORCO 325 MG-51 TAB PO (19:24)
[2021-03-08] MEDS ORDERED: BACTRIM DS 8001 TAB PO (19:24)
[2021-03-08 19:35] VITALS: PULSE 90
[2021-04-06] MEDS ORDERED: PREDNISONE20 MG PO (08:07)
[2021-04-06] MEDS ORDERED: PROAIR HFA0.09 MG/AC IH (08:07)
== END 2021-03-08 19:35 | disposition home or self-care (01) ==
LOC: COL.ER 18:32
DX: L03.012 Cellulitis of left finger (principal); Z90.89 Acquired absence of other organs; Z88.8 Allergy status to other drugs, medicaments and biological substances; Z91.040 Latex allergy status

== ENCOUNTER → 2021-04-06 | Emergency (ER) | payer SELFPAY ==
[~2021-04-06] VITALS: Ht 162.6 cm; Wt 68.2 kg
[~2021-04-06] MED LIST changes: +BACTRIM DS 8001 TAB PO; +NORCO 325 MG-51 TAB PO
[2021-04-06 07:27] VITALS: BP 118/81; PULSE 85; TEMP 98.1
== END ==
LOC: COL.ER 07:23
DX: T78.40XA Allergy, unspecified, initial encounter (principal); Z87.891 Personal history of nicotine dependence
CPT/HCPCS: J1100; J1200

== ENCOUNTER 2021-04-21 21:21 | Emergency (ER) | payer SELFPAY ==
[~2021-04-21] VITALS: Ht 154.9 cm; Wt 68.2 kg
[2021-04-21] MEDS ORDERED: PREDNISONE20 MG PO (23:40)
[2021-04-21 23:51] VITALS: BP 155/66; PULSE 65; TEMP 97.9
== END 2021-04-21 23:51 | disposition home or self-care (01) ==
LOC: COL.ER 21:21
DX: T78.40XA Allergy, unspecified, initial encounter (principal); F17.210 Nicotine dependence, cigarettes, uncomplicated
CPT/HCPCS: J7512

== ENCOUNTER 2021-05-27 21:39 | Emergency (ER) | payer SELFPAY ==
[~2021-05-27] VITALS: Ht 162.6 cm; Wt 68.2 kg
[2021-05-27] MEDS ORDERED: PROAIR HFA0.09 MG/AC IH (22:48)
[2021-05-27] MEDS ORDERED: PREDNISONE20 MG PO (22:48)
[2021-05-27 22:57] VITALS: BP 115/75; PULSE 85; TEMP 97.9
== END 2021-05-27 22:57 | disposition home or self-care (01) ==
LOC: COL.ER 21:39
DX: T78.40XA Allergy, unspecified, initial encounter (principal)
CPT/HCPCS: J7512

== ENCOUNTER 2021-06-04 19:49 | Emergency (ER) | payer SELFPAY ==
[~2021-06-04] VITALS: Ht 162.6 cm; Wt 68.2 kg
[2021-06-04 19:57] VITALS: TEMP 98
[2021-06-04] MEDS ORDERED: BENADRYL25 M2 PO (22:32)
[2021-06-04] MEDS ORDERED: PEPCID 20MG TAB20 MG PO (22:32)
[2021-06-04 22:45] VITALS: BP 154/70; PULSE 78
== END 2021-06-04 22:45 | disposition home or self-care (01) ==
LOC: COL.ER 19:49
DX: T78.1XXA Other adverse food reactions, not elsewhere classified, initial encounter (principal); R21 Rash and other nonspecific skin eruption
CPT/HCPCS: J8540

== ENCOUNTER 2021-06-07 19:51 | Emergency (ER) | payer SELFPAY ==
[~2021-06-07] VITALS: Ht 162.6 cm; Wt 68.2 kg
[2021-06-07 20:11] VITALS: TEMP 98.8
[2021-06-07 21:49] LABS: STREP SCREEN NEGATIVE
[2021-06-07] MEDS ORDERED: MEDROL 4MG DOSPA4 MG PO (22:14)
[2021-06-07 22:45] VITALS: BP 133/70; PULSE 76
== END 2021-06-07 22:45 | disposition home or self-care (01) ==
LOC: COL.ER 19:51
PROVIDERS: Emergency Medicine
DX: T78.1XXA Other adverse food reactions, not elsewhere classified, initial encounter (principal); Z20.822 Contact with and (suspected) exposure to COVID-19
CPT/HCPCS: J7512

== ENCOUNTER 2021-06-12 10:48 | Emergency (ER) | payer SELFPAY ==
[~2021-06-12] VITALS: Ht 162.6 cm; Wt 68.2 kg
[2021-06-12 11:15] VITALS: TEMP 98.5
[2021-06-12] MEDS ORDERED: PREDNISONE20 MG PO (11:28)
[2021-06-12 11:30] VITALS: PULSE 87
[2021-06-12 12:00] VITALS: BP 134/80
== END 2021-06-12 12:21 | disposition home or self-care (01) ==
LOC: COL.ER 10:48
DX: T78.3XXA Angioneurotic edema, initial encounter (principal); T78.1XXA Other adverse food reactions, not elsewhere classified, initial encounter
CPT/HCPCS: J2930

== ENCOUNTER 2021-07-30 23:30 | Emergency (ER) | payer SELFPAY ==
[~2021-07-30] VITALS: Ht 162.6 cm; Wt 68.2 kg
[2021-07-30 23:48] VITALS: TEMP 98
[2021-07-31] MEDS ORDERED: ATARAX 25MG25 MG/TAB PO (00:10)
[2021-07-31 01:56] VITALS: BP 144/70; PULSE 78
== END 2021-07-31 01:56 | disposition home or self-care (01) ==
LOC: COL.ER 23:30
DX: T78.40XA Allergy, unspecified, initial encounter (principal)
CPT/HCPCS: J2930

== ENCOUNTER 2021-11-06 09:55 | Emergency (ER) | payer SELFPAY ==
[~2021-11-06] VITALS: Ht 162.6 cm; Wt 68.2 kg
[2021-11-06 10:02] VITALS: TEMP 98.5
[2021-11-06] MEDS ORDERED: PREDNISONE20 MG PO (10:30)
[2021-11-06 11:01] VITALS: BP 119/7; PULSE 88
== END 2021-11-06 11:05 | disposition home or self-care (01) ==
LOC: COL.ER 09:55
DX: T78.40XA Allergy, unspecified, initial encounter (principal); R05.9 Cough, unspecified; Z91.011 Allergy to milk products; Z91.040 Latex allergy status
CPT/HCPCS: J2930

== ENCOUNTER 2022-09-16 00:11 | Emergency (ER) | payer OTHER ==
[~2022-09-16] VITALS: Ht 162.6 cm; Wt 68.2 kg
[2022-09-16 00:16] VITALS: TEMP 97.5
[2022-09-16] MEDS ORDERED: PREDNISONE20 MG PO (01:15)
[2022-09-16 01:48] VITALS: PULSE 93
== END 2022-09-16 01:48 | disposition home or self-care (01) ==
LOC: COL.ER 00:11
DX: T78.1XXA Other adverse food reactions, not elsewhere classified, initial encounter (principal); L29.9 Pruritus, unspecified; R07.0 Pain in throat; Z91.040 Latex allergy status; Z28.310 Unvaccinated for COVID-19
CPT/HCPCS: J1200; J2930

== ENCOUNTER 2022-12-10 19:26 | Emergency (ER) | payer OTHER ==
[~2022-12-10] VITALS: Ht 162.6 cm; Wt 68.2 kg
[2022-12-10 19:34] VITALS: TEMP 98.8
[2022-12-10] MEDS ORDERED: EPIPEN 2-PAK1 MG/ML IM (21:35)
[2022-12-10 21:53] VITALS: BP 115/72; PULSE 94
== END 2022-12-10 21:53 | disposition home or self-care (01) ==
LOC: COL.ER 19:26
DX: T78.00XA Anaphylactic reaction due to unspecified food, initial encounter (principal); Z91.040 Latex allergy status; Z28.310 Unvaccinated for COVID-19
CPT/HCPCS: J0171; J2920

== ENCOUNTER 2022-12-12 11:05 | Emergency (ER) | payer OTHER ==
[~2022-12-12] VITALS: Ht 162.6 cm; Wt 68.2 kg
[2022-12-12 11:13] VITALS: BP 135/81; TEMP 98.5
[2022-12-12] MEDS ORDERED: TESSALON P100 MG/CAP PO (11:56)
[2022-12-12 12:15] VITALS: PULSE 76
== END 2022-12-12 12:20 | disposition home or self-care (01) ==
LOC: COL.ER 11:05
DX: R05.9 Cough, unspecified (principal); Z28.310 Unvaccinated for COVID-19

== ENCOUNTER 2024-01-16 12:54 | Emergency (ER) | payer OTHER ==
[~2024-01-16] VITALS: Ht 162.6 cm; Wt 68.2 kg
[~2024-01-16 12:54] MED LIST changes: +DOXYCYCLINE 10100 MG PO; +TESSALON P100 MG/CAP PO
[2024-01-16] MEDS ORDERED: Acetaminophen 500 MG TAB PO ONE (13:30)
[2024-01-16 13:58] LABS: STREP A NEGATIVE
[2024-01-16 14:44] VITALS: TEMP 99.6
[2024-01-16 14:51] VITALS: BP 99/65; PULSE 82
== END 2024-01-16 15:20 | disposition home or self-care (01) ==
LOC: COL.ER 12:54
PROVIDERS: Nurse Practitioner
DX: J10.1 Influenza due to other identified influenza virus with other respiratory manifestations (principal); Z91.040 Latex allergy status